=== PATIENT | female | born 1995 | race Caucasian/White ===

== ENCOUNTER 2019-01-29 11:23 | Emergency (ER) | payer OTHER ==
[~2019-01-29] VITALS: Ht 154.9 cm; Wt 70.2 kg
[2019-01-29] MEDS ORDERED: IBUPROFEN 600 MG TABLET. PO ONE (12:15)
[2019-01-29] MEDS ORDERED: IBUP200T44 PO (12:16)
--- NOTE | 2019-01-29 12:17 | PHYS DOC ---
Past History Past Medical History: No Pertinent History Past Surgical History: No Surgical History Smoking: Non-smoker Alcohol Use: None Drug Use: None Adult General Chief Complaint Chief Complaint: WRIST PAIN HPI HPI 23-year-old female presents with report of left wrist pain with numbness to fingers 3 days. Patient reports she performs repetitive tasks at work. Patient concern for possible carpal tunnel. Denies trauma. Denies swelling. Denies redness. Denies . Review of Systems Review of Systems Constitutional: Denies fever or chills Eyes: Denies redness or eye pain HENT: Denies nasal congestion or sore throat Respiratory: Denies cough or shortness of breath Cardiovascular: Denies chest pain or palpitations GI: Denies abdominal pain, nausea, or vomiting : Denies dysuria or hematuria Musculoskeletal: Reports left wrist pain Integument: Denies rash or skin lesions Neurologic: Denies headache or focal weakness; reports numbness to left fingers Complete systems were reviewed and found to be within normal limits, except as documented in this note. Physical Exam Physical Exam Constitutional: Well developed, well nourished, no acute distress, non-toxic appearance HENT: Normocephalic, atraumatic, oropharynx moist Eyes: Conjunctiva normal, no discharge Neck: Normal range of motion, no tenderness, supple Cardiovascular: Heart rate normal, regular rhythm Lungs & Thorax: Bilateral breath sounds clear to auscultation, no wheezing Skin: Warm, dry, no erythema, no rash Extremities: ROM intact, no edema, left wrist without pain on ROM, Phalen and Tineal's sign negative Neurologic: Alert and oriented X 3, no focal deficits noted Psychologic: Affect normal, judgement normal EKG EKG [] Radiology/Procedures Radiology/Procedures [] Course & Med Decision Making Course & Med Decision Making Patient presents with left wrist pain with numbness into her fingers 3 days. Phalen and Tineal negative. No bony tenderness or deformities noted. Symptomatically treatment provided. Wrist splint applied. Patient stable for discharge with outpatient follow-up with PCP/orthopedics. Orthopedic referral provided. Discussed findings and plan with patient, who acknowledges understanding and agreement. Dragon Disclaimer Dragon Disclaimer This electronic medical record was generated, in whole or in part, using a voice recognition dictation system. Splinting Splinting : Location: Left wrist Pre-Made Type: [employer] velcro wrist splint Pre-Proc Neuro Vasc Exam: normal Post-Proc Neuro Vasc Exam: normal, unchanged from pre-exam Departure Departure: Impression: Primary Impression: Wrist pain, acute Disposition: 01 HOME, SELF-CARE Condition: STABLE Referrals: HARINI FAROOQ MD (PCP) JASMYNE RADER MD Patient Instructions: Wrist Pain, [id number] Additional Instructions: Your pain is more likely secondary to repetitive movement from your work. Please follow with your doctor, orthopedic surgeon, or workman's comp for further evaluation and treatment. Scripts Ibuprofen (MOTRIN IB) 200 Mg Tablet 600 MG PO TID PRN PRN for PAIN, #30 TAB Prov: QUINTEN BAINS DO 01/29/19 Problem Qualifiers Primary Impression: Wrist pain, acute Laterality: left Qualified Codes: M25.532 - Pain in left wrist QUINTEN BAINS DO Jan 29, 2019 12:17
[2019-01-29 12:25] VITALS: BP 131/66
== END 2019-01-29 12:27 | disposition home or self-care (01) ==
LOC: ER 11:23
DX: M25.532 Pain in left wrist (principal)
CPT/HCPCS: 29125; 99283

== ENCOUNTER → 2019-07-22 | Outpatient (CLI) | payer OTHER ==
[~2019-07-22] MED LIST: IBUP200T44 PO
--- NOTE | 2019-07-22 13:28 | RAD ---
EXAM: BREAST RIGHT. HISTORY: Right breast palpable abnormality. COMPARISON: None. FINDINGS: No suspicious mass, fluid collection or calcification within the region of the patient's reported palpable abnormality in the right inferior medial breast. Mild ductal dilatation noted retroareolar. Patient reports no history of nipple discharge, nipple retraction or skin discoloration. IMPRESSION: No ultrasound evidence of abnormality within the region of the patient's palpable concern. Mild retroareolar ductal dilatation. Recommend clinical follow-up. If persistent clinical concern or new finding, recommend ultrasound follow-up. BI-RADS CATEGORY: BI-RADS CATEGORY: 2 BENIGN FINDING(S). RECOMMENDED FOLLOW-UP: CLIN FOLLOW UP IMAGING CLINICALLY INDICATED.
== END ==
LOC: US 12:45
PROVIDERS: ATTEND Registered Nurse
DX: R92.2 Inconclusive mammogram (principal)
CPT/HCPCS: 76641

== ENCOUNTER 2021-04-19 22:49 | Emergency (ER) | payer OTHER ==
[~2021-04-19] VITALS: Ht 154.9 cm; Wt 70.2 kg
--- NOTE | 2021-04-19 22:57 | PHYS DOC ---
Past History Past Medical History: No Pertinent History Past Surgical History: No Surgical History Smoking: Non-smoker Alcohol Use: None Drug Use: None General Adult HPI: HPI: ".., I fell and hurt my Lt. leg.. ".." Slipped on the ice.. ." Patient is a 25 year old female who presents with above hx and complaints of fall and left leg injury. Patient has obvious swelling to the mid tibia-fibula area and abrasion. Patient is ambulatory with limp. Distal neurovascular i ntact. Can do straight leg lift. No upper leg injury. No other injury reported in the fall. Normally healthy. No recent travel. No specific ill contacts. No history immunosuppression. Patient has gotten Covid vaccination as well as flu vaccination this season. Review of Systems: Review of Systems: Constitutional: Denies fever or chills Eyes: Denies change in visual acuity HENT: Denies nasal congestion or sore throat Respiratory: Denies cough or shortness of breath Cardiovascular: Denies chest pain or edema GI: Denies abdominal pain, nausea, vomiting, bloody stools or diarrhea : Denies dysuria Musculoskeletal: Complains of injury to left leg and fall on ice Integument: Denies rash Neurologic: Denies headache, focal weakness or sensory changes Endocrine: Denies polyuria or polydipsia Lymphatic: Denies swollen glands Psychiatric: Denies depression or anxiety Family History: Family History: Noncontributory to presentation Current Medications: Current Meds: See nursing for home meds Allergies: Allergies: Allergies Coded Allergies Type Severity Reaction Last Updated Verified No Known Drug Allergies 01/29/19 No Physical Exam: PE: Constitutional: Well developed, well nourished, moderate acute distress, non- toxic appearance. [] HENT: Normocephalic, atraumatic, bilateral external ears normal, oropharynx moist, no oral exudates, nose normal. [] Eyes: PERRLA, EOMI, conjunctiva normal, no discharge. [] Neck: Normal range of motion, no tenderness, supple, no stridor. [] Cardiovascular:Heart rate regular rhythm, no murmur [] Lungs & Thorax: Bilateral breath sounds clear to auscultation [] Abdomen: Bowel sounds normal, soft, no tenderness, no masses, no pulsatile masses. [] Skin: Warm, dry, no erythema, no rash. [] Abrasion left lower leg Back: No tenderness, no CVA tenderness. [] Extremities: Left lower leg tenderness, no cyanosis, no clubbing, ROM intact, left lower leg edema. [] Neurologic: Alert and oriented X 3, normal motor function, normal sensory function, no focal deficits noted. [] Psychologic: Affect anxious,, judgement normal, mood normal. [] EKG: EKG: [] Radiology/Procedures: Radiology/Procedures: [][place] [address] IMAGING REPORT Signed PATIENT: POLO CONTRERAS MACCOUNT: [id number] : 1995 LOCATION: ER AGE: 25 SEX: F EXAM STATUS: REG ER ORD. PHYSICIAN: NAYLA CROOK MD REASON: fall on ice, left lower leg abrasion and swelling PROCEDURE: TIBIA FIBULA LEFT EXAM: 2 views left tibia/fibula DATE: 04/19/2021 11:27 PM INDICATION: Reason: fall on ice, left lower leg abrasion and swelling / Spl. Instructions: / History: . COMPARISON: No Prior FINDINGS: Mild soft tissue swelling overlying the tibia. No acute fracture or dislocation. IMPRESSION: 1. No acute fracture or dislocation Electronically signed by: Wilmer Mahoney MD (04/19/2021 11:45 PM) [facility] DICTATED AND SIGNED BY: WILMER MAHONEY MD DATE: 04/19/21 4102 CC: NAYLA CROOK MD; MARTIN JUNG PAC ~MTH0 0 Heart Score: C/O Chest Pain: N/A Risk Factors: Risk Factors: DM, Current or recent (<one month) smoker, HTN, HLP, family history of CAD, obesity. Risk Scores: Score 0 - 3: 2.5% MACE over next 6 weeks - Discharge Home Score 4 - 6: 20.3% MACE over next 6 weeks - Admit for Clinical Observation Score 7 - 10: 72.7% MACE over next 6 weeks - Early Invasive Strategies Course & Med Decision Making: Course & Med Decision Making Pertinent Labs and Imaging studies reviewed. (See chart for details) Ice packs as needed. Elevate leg. Rest. Apply Polysporin 4 times a day to abrasion. Tylenol and ibuprofen for pain. Follow-up primary care. Monitor for infection. Return if any concerns. Repeat x-ray and 2 weeks if no improvement. Impression: 1. Slip and fall 2. Contusion and abrasion to the left lower leg [] Dragon Disclaimer: Dragon Disclaimer: This electronic medical record was generated, in whole or in part, using a voice recognition dictation system. Departure Departure: Referrals: PCP,UNKNOWN (PCP) Dragon Disclaimer This chart was dictated in whole or in part using Voice Recognition software in a busy, high-work load, and often noisy Emergency Department environment. It may contain unintended and wholly unrecognized errors or omissions. Dragon Disclaimer This chart was dictated in whole or in part using Voice Recognition software in a busy, high-work load, and often noisy Emergency Department environment. It may contain unintended and wholly unrecognized errors or omissions. NAYLA CROOK MD Apr 19, 2021 22:57
[2021-04-19 23:02] VITALS: BP 141/61
[2021-04-19] MEDS ORDERED: ACETAMINOPHEN 500 MG TABLET PO ONE (23:30)
[2021-04-19] MEDS ORDERED: MUPIROCIN 2% TOPICAL OINTMENT 22GM TUBE. TP SCH (23:30)
--- NOTE | 2021-04-19 23:48 | RAD ---
EXAM: 2 views left tibia/fibula DATE: 04/19/2021 11:27 PM INDICATION: Reason: fall on ice, left lower leg abrasion and swelling / Spl. Instructions: / History : . COMPARISON: No Prior FINDINGS: Mild soft tissue swelling overlying the tibia. No acute fracture or dislocation. IMPRESSION: 1. No acute fracture or dislocation Electronically signed by: Wilmer Carrion MD (04/19/2021 11:45 PM) [facility]
== END 2021-04-20 00:21 | disposition home or self-care (01) ==
LOC: ER 22:49
DX: S80.12XA Contusion of left lower leg, initial encounter (principal); W00.0XXA Fall on same level due to ice and snow, initial encounter; Y93.89 Activity, other specified; Y92.89 Other specified places as the place of occurrence of the external cause; Y99.8 Other external cause status
CPT/HCPCS: 73590; 99283